=== PATIENT | female | born 1980 | race Caucasian/White ===

== ENCOUNTER 2018-10-21 02:07 | Emergency (ER) | payer MEDICAID, OTHER ==
[~2018-10-21] VITALS: Ht 167.6 cm; Wt 117.0 kg
[2018-10-21 02:16] VITALS: BP 123/92
--- NOTE | 2018-10-21 02:26 | NUR ---
I PUT HER IN THE ROOM, SHE REFUSED TO GET INTO A GOWN AND WHEN I INFORMED HER THAT THE DOCTOR WOULD NEED TO LOOK AT HER LEG AND THAT SHE NEEDS TO HAVE IT BARE SHE SAID 'THAT'S AKWARD.' INFORMED
== END 2018-10-21 03:16 | disposition home or self-care (01) ==
LOC: ER 02:08
DX: L85.3 Xerosis cutis (principal); J44.9 Chronic obstructive pulmonary disease, unspecified; K21.9 Gastro-esophageal reflux disease without esophagitis; E03.9 Hypothyroidism, unspecified; Z88.0 Allergy status to penicillin; Z56.0 Unemployment, unspecified
CPT/HCPCS: 99281

== ENCOUNTER → 2018-11-04 | Emergency (ER) | payer OTHER ==
[~2018-11-04] VITALS: Ht 167.6 cm; Wt 115.0 kg
[2018-11-04 04:41] VITALS: BP 142/66
== END | disposition home or self-care (01) ==
LOC: ER 04:38
DX: M79.605 Pain in left leg (principal); R68.84 Jaw pain; J44.9 Chronic obstructive pulmonary disease, unspecified; K21.9 Gastro-esophageal reflux disease without esophagitis; E03.9 Hypothyroidism, unspecified; Z56.0 Unemployment, unspecified; Z88.0 Allergy status to penicillin
CPT/HCPCS: 99283